=== PATIENT | female | born 2000 | race Caucasian/White ===

== ENCOUNTER 2022-01-20 15:06 | Emergency (ER) | payer MEDICARE, OTHER, MEDICAID, SELFPAY ==
[2022-01-20] VITALS (11 sets, daily range): BP systolic 115–156; BP diastolic 71–115; PULSE 61–82; RESP 14–23; TEMP 36.4; O2SAT 98–100; BMI 36.2
[2022-01-20 18:28] LABS: Add Manual Diff / Slide Review NO; Basophils Absolute Auto 100 /uL (0-100); Basophils Percent Auto 0.6 % (0-2); Eosinophils Absolute Auto 200 /uL (0-450); Eosinophils Percent Auto 1.5 % (2-4); Hematocrit 42.8 % (36-46); Hemoglobin 14.4 g/dL (12.0-16.0); Lymphocytes Absolute Auto 3200 /uL (1100-4500); Lymphocytes Percent Auto 27.6 % (25-40); Mean Corpuscular HGB Conc 33.6 % (30-36); Mean Corpuscular Hemoglobin 29.1 PG (26-34); Mean Corpuscular Volume 86.7 fL (80-100); Monocytes Absolute Auto 600 /uL (0-900); Monocytes Percent Auto 4.9 % (3-14); Neutrophils Absolute Auto 7600 /uL (1500-7000); Neutrophils Percent Auto 65.4 % (50-75); Platelet Count 353 X10^3/uL (150-400); Red Blood Cell Count 4.94 X10^6/uL (4.0-5.2); Red Cell Distribution Width 12.7 % (11.6-14.8); White Blood Cell Count 11.7 X10^3/uL (4.5-11.0)
--- NOTE | 2022-01-20 18:29 | DI.US.S_ITS ---
PROCEDURE: US PELVIC COMPLETE INDICATIONS: PELVIC PAIN TECHNIQUE: Real-time scanning was performed of the pelvic organs, with image documentation. Additional endovaginal scanning was necessary due to incomplete visualization of the adnexal and endometrial structures by transabdominal scanning. COMPARISON: None. FINDINGS: Uterus: Uterus is anteverted and normal in size at 7.3 x 3.6 x 4.4 cm. The myometrium is homogeneous. The endometrium measures 11.2 mm combined thickness. Ovaries: Right left ovaries measure 2.5 x 0.9 x 1.1 cm 3.2 x 2.9 x 3.2 cm respectively. Left ovary contains a simple cyst measuring 2.7 cm. Both ovaries have appropriate vascularity without torsion. Other: No pathologic free abdominal or pelvic fluid. IMPRESSION: Simple left ovarian cyst. Otherwise unremarkable ultrasound the pelvis Approved by: Marlon Mora M.D. on 01/20/2022 at 20:05
[2022-01-20 18:30] LABS: Alanine Aminotransferase 35 IU/L (<35); Albumin 4.4 g/dL (3.5-5.0); Albumin Globulin Ratio 1.4 (1.0-2.8); Alkaline Phosphatase 65 U/L (38-126); Aspartate Aminotransferase 29 IU/L (14-36); BUN Creatinine Ratio 11.9 (6-22); Bilirubin Total 0.4 mg/dL (0.2-1.3); Blood Urea Nitrogen 7 mg/dL (7-17); Calcium 9.3 mg/dL (8.4-10.2); Carbon Dioxide 26 mmol/L (22-32); Chloride 108 mmol/L (98-107); Estimated Glomerular Filt Rate > 60 mL/min (>60); Globulin 3.1 g/dL (1.7-4.1); Glucose 83 mg/dL (70-100); HEMOLYSIS < 15 (0-50); Lipase 42 U/L (23-300); Potassium 4.1 mmol/L (3.4-5.1); Sodium 141 mmol/L (137-145); Total Protein 7.5 g/dL (6.3-8.2)
--- NOTE | 2022-01-20 18:41 | ED.ABDPAIN ---
HPI - Abdominal Pain <Madan Rivera PA-C - Last Filed: 01/25/22 19:53> General Chief Complaint: Abdominal Pain Stated Complaint: Lower Abd Pain Time Seen by Provider: 01/20/22 17:49 Source: patient Mode of arrival: Ambulatory History of Present Illness HPI narrative: Patient is a 21-year-old female presenting to the emergency department today for an evaluation bilateral lower abdominal pain. Patient explains that she began to experience a sharp pain in her lower abdomen yesterday, stating that no one side appears worse than the other. She also states that she has been experiencing ?abdominal burning? for a number of years. She explains that she was initially on ranitidine for this abdominal burning sensation but discontinued use after the medication was recalled. She explains that she has been taking Pepto-Bismol for this burning sensation with mild improvement in her symptoms. Patient states that her lower abdominal pain is alleviated somewhat with application of a heating pad, however she states that the pain returns as soon as the heating pad is removed. She denies fever, chills, chest pain, cough, shortness of breath, nausea, vomiting, diarrhea, constipation, dysuria, hematuria, or any other concerning symptoms. No further concerns were voiced at this time. Related Data Home Medications Medication Instructions Recorded Confirmed medroxyprogesterone 400 mg/mL mg IM QMONTH 01/20/22 intramuscular suspension Previous Rx's Medication Instructions Recorded ketorolac 10 mg tablet 10 mg PO Q6H PRN #14 tab 01/20/22 Allergies Allergy/AdvReac Type Severity Reaction Status Date / Time No Known Drug Allergies Allergy Verified 01/20/22 15:34 Review of Systems <Madan Rivera PA-C - Last Filed: 01/25/22 19:53> Constitutional Constitutional: Denies chills, Denies fatigue, Denies fever(s), Denies frequent falls, Denies lethargy and Denies weakness Eyes Eyes: Denies loss of vision ENT Ears, Nose, Mouth, and Throat: Denies dizziness and Denies neck pain Cardiovascular Cardiovascular: Denies chest pain, Denies irregular heart rhythm, Denies lightheadedness, Denies palpitations, Denies dyspnea, Denies dyspnea on exertion and Denies orthopnea Respiratory Respiratory: Denies cough, Denies dyspnea, Denies dyspnea on exertion and Denies wheezing Gastrointestinal Gastrointestinal: Reports abdominal pain, Denies change in bowel habits, Denies diarrhea, Denies nausea and Denies vomiting Genitourinary Genitourinary: Denies hematuria, Denies flank pain, Denies urinary incontinence and Denies urinary urgency Musculoskeletal Musculoskeletal: Denies back pain, Denies muscle weakness, Denies neck pain, Denies numbness and Denies tingling Integumentary/Breasts Skin/Breast: Denies pruritus, Denies erythema, Denies rash and Denies wounds Neurologic Neurologic: Denies behavioral changes, Denies confusion, Denies dizziness, Denies frequent falls, Denies loss of vision, Denies numbness, Denies tingling and Denies weakness Psychiatric Psychiatric: Denies behavioral changes and Denies confusion Endocrine Endocrine: Denies fatigue and Denies palpitations Allergic/Immunologic Allergic/Immunologic: Denies wheezing Patient History <Madan Rivera PA-C - Last Filed: 01/25/22 19:53> Social History Smoking Status: Never smoker Smoking Status: Never smoker alcohol intake frequency: other Substance Use Type: does not use Exam <Madan Rivera PA-C - Last Filed: 01/25/22 19:53> Narrative Exam Narrative: GENERAL: 21 year old patient appears stated age. Well-developed patient, in no acute distress. HEAD: Atraumatic. Normocephalic. EYES: Pupils equal round and reactive. Extraocular motions intact. No scleral icterus. No injection or drainage. ENT: Nose without bleeding, purulent drainage. Throat without erythema, tonsillar hypertrophy or exudate. Airway patent. NECK: Trachea midline. Non tender CARDIOVASCULAR: Regular rate and rhythm without murmurs, gallops, or rubs. RESPIRATORY: Clear to auscultation. Breath sounds equal bilaterally. No wheezes, rales, or rhonchi. GASTROINTESTINAL: Abdomen soft, nondistended. Mild tenderness to palpation appreciated in the right lower quadrant and left lower quadrant of the abdomen with no significant guarding or rebound tenderness. No masses appreciated. No significant overlying erythema or ecchymosis. Negative psoas sign, negative obturator's sign. EXTREMITIES: No edema or joint tenderness. BACK: Nontender without deformity or crepitance. No flank tenderness. NEURO: AOx3. SKIN: No rash or erythema of visible areas Initial Vital Signs Initial Vital Signs: Vital Signs Temperature 97.5 F L 01/20/22 15:30 Pulse Rate 82 01/20/22 15:30 Respiratory Rate 17 01/20/22 15:30 Blood Pressure 144/115 H 01/20/22 15:30 Pulse Oximetry 100 01/20/22 15:30 Course <Madan Rivera PA-C - Last Filed: 01/25/22 19:53> Course Course Narrative: CBC, CMP, lipase, urine dip, urine , pelvic ultrasound obtained. Orders Ordered: ED Orders 01/20/22 17:00 Complete Blood Count AUTO DIFF Stat Comprehensive Metabolic Panel Stat Lipase Stat 01/20/22 18:29 US pelvic complete Stat Vital Signs Vital signs: Vital Signs - 8 hr 01/20/22 15:30 Temperature 97.5 F L Pulse Rate 82 Respiratory Rate 17 Blood Pressure 144/115 H Pulse Oximetry 100 MDM - Abdominal Pain <Madan Rivera PA-C - Last Filed: 01/25/22 19:53> Lab Data Result diagrams: 01/20/22 17:00 01/20/22 17:00 Labs: Lab Results 01/20/22 01/20/22 Range/Units 17:00 17:00 WBC 11.7 H (4.5-11.0) X10^3/uL RBC 4.94 (4.0-5.2) X10^6/uL Hgb 14.4 (12.0-16.0) g/dL Hct 42.8 (36-46) % MCV 86.7 (80-100) fL MCH 29.1 (26-34) PG MCHC 33.6 (30-36) % RDW 12.7 (11.6-14.8) % Plt Count 353 (150-400) X10^3/uL Neut % (Auto) 65.4 (50-75) % Lymph % (Auto) 27.6 (25-40) % [place] % (Auto) 4.9 (3-14) % Eos % (Auto) 1.5 L (2-4) % Baso % (Auto) 0.6 (0-2) % Neut # (Auto) 7600 H (4304-4086) /uL Lymph # (Auto) 3200 (1244-5611) /uL [place] # (Auto) 600 (0-900) /uL Eos # (Auto) 200 (0-450) /uL Baso # (Auto) 100 (0-100) /uL Sodium 141 (137-145) mmol/L Potassium 4.1 (3.4-5.1) mmol/L Chloride 108 H (98-107) mmol/L Carbon Dioxide 26 (22-32) mmol/L BUN 7 (7-17) mg/dL Creatinine 0.59 (0.52-1.04) mg/dL Estimated GFR > 60 (>60) mL/min BUN/Creatinine Ratio 11.9 (6-22) Glucose 83 (70-100) mg/dL Calcium 9.3 (8.4-10.2) mg/dL Total Bilirubin 0.4 (0.2-1.3) mg/dL AST 29 (14-36) IU/L ALT 35 H (<35) IU/L Alkaline Phosphatase 65 (38-126) U/L Total Protein 7.5 (6.3-8.2) g/dL Albumin 4.4 (3.5-5.0) g/dL Globulin 3.1 (1.7-4.1) g/dL Albumin/Globulin Ratio 1.4 (1.0-2.8) Lipase 42 (23-300) U/L Point of care testing: Point of Care Testing Test Results Negative Urine Dip Bedside Urine Glucose Negative Bedside Urine Bilirubin - Negative Bedside Urine Ketone - Negative Urine Specific [place] 1.015 Bedside Urine Occult Blood - Negative Bedside Urine pH 6.5 Bedside Urine Protein - Negative Bedside Urine Urobilinogen - Negative Bedside Urine Nitrite - Negative Bedside Urine Leukocytes - Negative Esterase Discharge Plan Departure Patient Disposition: Home Clinical Impression: Cyst of left ovary Instructions: DI for Ovarian Cyst Activity Restrictions/Additional Instructions: *You have been diagnosed with [left ovarian cyst] *What to do: *Please continue to take your regular medications as directed. [x ] New medication prescriptions sent to your pharmacy: [ [facility] in [place]] [ ] New medication written as a paper prescription [ ] No new medications given *Please follow up with your primary care provider in 2-3 days, call for an appointment. Let them know you were seen in the Emergency Department and that we ask that you be seen in follow up. We will electronically transmit a record of today's note if your PCP is in our system *If you do not have a primary care provider please contact the [facility] Resource line at [phone]. They will ask some questions about your medical history and help get you set up with a doctor in the community. *Return to Emergency Department if you should have any new, worsening or concerning symptoms, such as [fever greater than 101 F, shaking chills, worsening pain, persistent vomiting or other bothersome symptoms] Prescriptions: New ketorolac 10 mg tablet 10 mg PO Q6H PRN (Reason: pain) Qty: 14 0RF No Action Depo-Provera 400 mg/mL Suspension IM QMONTH 0RF Referrals: Saira Benedict ARNP [Primary Care Provider] - Stand Alone Forms: Work Release Note
== END 2022-01-20 21:34 | disposition home or self-care (01) ==
PROVIDERS: Emergency Medicine; Emergency Provider Emergency Medicine; Family Provider Pediatrics; PCP Nurse Practitioner
DX: N83.202 Unspecified ovarian cyst, left side (principal); R10.31 Right lower quadrant pain
CPT/HCPCS: 76830; 76856; 80053; 81003; 81025; 83690; 85025; 99282; 99283

== ENCOUNTER 2022-07-13 11:26 | Emergency (ER) | payer MEDICARE, OTHER, MEDICAID, SELFPAY ==
[2022-07-13 11:43] VITALS: BP 148/96; PULSE 70; RESP 20; TEMP 36.1; O2SAT 99; BMI 35.9
== END 2022-07-13 14:49 | disposition left against medical advice (07) ==
PROVIDERS: Emergency Provider Physician Assistant; Family Provider Pediatrics; PCP Nurse Practitioner
CPT/HCPCS: 99281

== ENCOUNTER 2023-10-31 08:13 | Emergency (ER) | payer OTHER, SELFPAY ==
[2023-10-31] VITALS (7 sets, daily range): BP systolic 115–133; BP diastolic 76–94; PULSE 65–80; RESP 18; TEMP 36.9; O2SAT 94–100; BMI 32.5
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
[2023-10-31] MEDS: IBUPROFEN 400 MG TABLET 800 MG PO (08:55)
== END 2023-10-31 09:38 | disposition home or self-care (01) ==
PROVIDERS: Emergency Provider Emergency Medicine; Family Provider Pediatrics; PCP Nurse Practitioner
DX: S16.1XXA Strain of muscle, fascia and tendon at neck level, initial encounter (principal); V89.2XXA Person injured in unspecified motor-vehicle accident, traffic, initial encounter
CPT/HCPCS: 71046; 99283

== ENCOUNTER 2024-12-02 15:08 | Emergency (ER) | payer SELFPAY ==
[2024-12-02 15:32] VITALS: BP 146/93; PULSE 94; RESP 20; TEMP 36.6; O2SAT 100; BMI 34.0
[2024-12-02 16:22] LABS: Influenza A - CEPHEID Flu A NEGATIVE (NEGATIVE); Influenza B - CEPHEID Flu B NEGATIVE (NEGATIVE); Respiratory Syncytial Virus Negative (Negative)
[2024-12-02 16:23] LABS: COVID-19 CEPHEID 4-PLEX PCR Negative (Negative)
--- NOTE | 2024-12-02 18:27 | ED_ITS ---
HPI - URI/Sore Throat <Maria Eugenia Colon PA-C - Last Filed: 12/02/24 20:03> General Chief Complaint: Upper Respiratory Symptoms Stated Complaint: lower left quad px, ear px x 4days Time Seen by Provider: 12/02/24 18:27 Source: patient Mode of arrival: Ambulatory History of Present Illness HPI Narrative: Ms. Encarnacion is a pleasant 24-year-old female with no reported past medical history who presents to the emergency department for URI type symptoms x5 days. Patient reports that she has had occasional dry cough, pain on left lower chest wall with coughing/deep breath, right ear pain and congestion occasional headache for the last few days. Denies fever, sore throat, ear drainage, chest pain, nausea, vomiting, dysuria. Some occasional loose stool. Reports that she will need a note for work because she is missed last 3 days due to her symptoms. Related Data Home Medications Medication Instructions Recorded Confirmed medroxyprogesterone 400 mg/mL mg IM QMONTH 01/20/22 intramuscular suspension Previous Rx's Medication Instructions Recorded ketorolac 10 mg tablet 10 mg PO Q6H PRN pain #14 tabs 01/20/22 Allergies Allergy/AdvReac Type Severity Reaction Status Date / Time No Known Drug Allergies Allergy Verified 01/20/22 15:34 Review of Systems <Maria Eugenia Colon PA-C - Last Filed: 12/02/24 20:03> Review of Systems ROS Unobtainable: All systems reviewed & are unremarkable except as noted in HPI and below Patient History <Maria Eugenia Colon PA-C - Last Filed: 12/02/24 20:03> Social History Smoking Status: Never smoker Smoking Status: Never smoker alcohol intake frequency: other Exam <Maria Eugenia Colon PA-C - Last Filed: 12/02/24 20:03> Narrative Exam Narrative: GENERAL: 24 year old patient appears stated age. Well-developed patient, in no acute distress. HEAD: Atraumatic. Normocephalic. EYES: No scleral icterus. No injection or drainage. ENT: Normal TM BL. Nose without bleeding, purulent drainage. Throat With posterior oropharyngeal erythema and Palatal petechiae. Uvula is midline, no tonsillar hypertrophy or exudates. Airway patent. NECK: Trachea midline. Cervical ROM intact. CARDIOVASCULAR: Regular rate and rhythm. RESPIRATORY: Nonlabored respirations. Speaking in clear, full sentences. Clear to auscultation. No wheezing. GASTROINTESTINAL: Abdomen soft, non-tender, nondistended. EXTREMITIES: No edema or joint tenderness. NEURO: AOx3. Clear speech. Moves all 4 extremities appropriately. SKIN: No rash or erythema of visible areas Initial Vital Signs Initial Vital Signs: Vital Signs Temperature 98 F 12/02/24 15:32 Pulse Rate 94 H 12/02/24 15:32 Respiratory Rate 20 12/02/24 15:32 Blood Pressure 146/93 H 12/02/24 15:32 Pulse Oximetry 100 12/02/24 15:32 Oxygen Delivery Method Room Air 12/02/24 15:32 <Nikia Del Rio MD - Last Filed: 12/03/24 03:58> Initial Vital Signs Initial Vital Signs: Vital Signs Temperature 98 F 12/02/24 15:32 Pulse Rate 94 H 12/02/24 15:32 Respiratory Rate 20 12/02/24 15:32 Blood Pressure 146/93 H 12/02/24 15:32 Pulse Oximetry 100 12/02/24 15:32 Oxygen Delivery Method Room Air 12/02/24 15:32 Course <Maria Eugenia Colon PA-C - Last Filed: 12/02/24 20:03> Orders Ordered: Discontinued Medications Acetaminophen (Acetaminophen 325 Mg Tablet) 650 mg PO NOW ONE Stop: 12/02/24 18:35 Last Admin: 12/02/24 18:55 Dose: 650 mg Documented By: HUNG Ibuprofen (Ibuprofen 400 Mg Tablet) 400 mg PO NOW ONE Stop: 12/02/24 18:35 Last Admin: 12/02/24 18:55 Dose: 400 mg Documented By: HUNG Vital Signs Vital signs: Vital Signs - 8 hr 12/02/24 15:32 12/02/24 19:53 Temperature 98 F Pulse Rate 94 H 86 Respiratory Rate 20 Blood Pressure 146/93 H 121/86 Pulse Oximetry 100 99 Oxygen Delivery Method Room Air <Nikia Del Rio MD - Last Filed: 12/03/24 03:58> Orders Ordered: Discontinued Medications Acetaminophen (Acetaminophen 325 Mg Tablet) 650 mg PO NOW ONE Stop: 12/02/24 18:35 Last Admin: 12/02/24 18:55 Dose: 650 mg Documented By: HUNG Ibuprofen (Ibuprofen 400 Mg Tablet) 400 mg PO NOW ONE Stop: 12/02/24 18:35 Last Admin: 12/02/24 18:55 Dose: 400 mg Documented By: HUNG Vital Signs Vital signs: Vital Signs - 8 hr 12/02/24 15:32 12/02/24 19:53 Temperature 98 F Pulse Rate 94 H 86 Respiratory Rate 20 Blood Pressure 146/93 H 121/86 Pulse Oximetry 100 99 Oxygen Delivery Method Room Air MDM - URI/Sore Throat <Maria Eugenia Colon PA-C - Last Filed: 12/02/24 20:03> Medical Records Attestation: I reviewed the patient's medical records. Lab Data Labs: Lab Results 12/02/24 12/02/24 Range/Units 15:40 18:32 SARS-CoV-2 (PCR) Negative (Negative) Influenza A (RT-PCR) Flu a negative (NEGATIVE) Influenza B (RT-PCR) Flu b negative (NEGATIVE) RSV (PCR) Negative (Negative) Group A Strep (PCR) Negative (Negative) Imaging Data Chest x-ray: Radiologist's Impression: PROCEDURE: XR CHEST 2V INDICATIONS: left lower chest pain with deep breathing / cough TECHNIQUE: 2 views of the chest were acquired. COMPARISON: [facility], , XR CHEST 2V, 10/31/2023, 9:00. FINDINGS: Surgical changes and devices: None. Lungs and pleura: Lungs are clear. No pleural effusions or pneumothorax. Mediastinum: Mediastinal contours are normal. Heart size is normal. Bones and chest wall: No suspicious bony abnormalities. Soft tissues appear unremarkable. IMPRESSION: No acute cardiopulmonary abnormality is seen. [facility] Narrative Medical decision making narrative: 24-year-old female with no reported past medical history who presents to the emergency department for URI type symptoms x5 days. She is having right ear pain, cough, left lower ribcage pain with cough. Differential diagnosis includes but is not limited to viral syndrome, bronchitis, pneumonia, acute otitis media, strep pharyngitis, viral pharyngitis, costochondritis, etc. On exam the patient is in no acute distress, nontoxic appearing, vital signs reveal pulse of 94, 100% O2 on room air, afebrile, no respiratory distress, blood pressure 146/93. Normal TMs bilaterally, there is posterior oropharyngeal erythema with palatal petechiae, she denies any oral sex/trauma, no severe sore throat. Viral swab was obtained in triage and is negative. We will add on strep swab, two-view chest x-ray, ibuprofen and Tylenol. Strep swab negative. Chest x-ray negative. Patient's symptoms are consistent with viral URI at this time, physical exam does not reveal an ear infection. Recommended supportive care with rest, hydration, ibuprofen/ acetaminophen. Patient was provided with work note. ED return precautions discussed. She is stable for discharge home. <Nikia Del Rio MD - Last Filed: 12/03/24 03:58> Lab Data Labs: Lab Results 12/02/24 12/02/24 Range/Units 15:40 18:32 SARS-CoV-2 (PCR) Negative (Negative) Influenza A (RT-PCR) Flu a negative (NEGATIVE) Influenza B (RT-PCR) Flu b negative (NEGATIVE) RSV (PCR) Negative (Negative) Group A Strep (PCR) Negative (Negative) Discharge Plan Departure Patient Disposition: Home Clinical Impression: Upper respiratory infection, viral Instructions: DI for Viral Upper Respiratory Infection -- Adult Activity Restrictions/Additional Instructions: Dear Mike Shashank, Thank you for coming to the emergency department. Today you tested negative for COVID, flu a, flu B, RSV, strep throat. Your chest x-ray revealed no signs of pneumonia, and your ear exam does not reveal an ear infection. Please rest, hydrate, use ibuprofen / acetaminophen as needed for pain or fevers, and follow up with the primary care doctor. Please return to the emergency department if you develop any chest pain, shortness of breath, or any other concerns. Please follow up with your primary care doctor within the next 2-3 days for ER follow-up. (If you do not have a PCP you can call [phone]. to schedule an appointment with an Primary Care Provider) IF YOU DEVELOP ANY NEW OR WORSENING SYMPTOMS, RETURN TO THE ER! Please read the attached instructions, they highlight more specific treatments and interventions for you at home. Thank you for letting me participate in your care, Maria Eugenia Colon PA-C Prescriptions: No Action Depo-Provera 400 mg/mL Suspension IM QMONTH ketorolac 10 mg tablet 10 mg PO Q6H PRN (Reason: pain) Qty: 14 0RF Referrals: Saira Benedict [employer] [facility] [Primary Care Provider] - Stand Alone Forms: Patient Portal/API/Survey, Work Release Note ED Sign-out <Nikia Del Rio MD - Last Filed: 12/03/24 03:58> Cosign ED Attending Cosignature Attestation: I was immediately available in the department for consultation throughout this patient's visit. Nikia Del Rio MD
--- NOTE | 2024-12-02 18:34 | DI.RAD.S_ITS ---
PROCEDURE: XR CHEST 2V INDICATIONS: left lower chest pain with deep breathing / cough TECHNIQUE: 2 views of the chest were acquired. COMPARISON: [facility], [place], XR CHEST 2V, 10/31/2023, 9:00. FINDINGS: Surgical changes and devices: None. Lungs and pleura: Lungs are clear. No pleural effusions or pneumothorax. Mediastinum: Mediastinal contours are normal. Heart size is normal. Bones and chest wall: No suspicious bony abnormalities. Soft tissues appear unremarkable. IMPRESSION: No acute cardiopulmonary abnormality is seen. Dictated by: Jose A Randall M.D. on 12/02/2024 at 19:58 Approved by: Jose A Randall M.D. on 12/02/2024 at 19:58
--- NOTE | 2024-12-02 18:44 | PC.NURSE ---
Addendum entered by Jennifer Carey R.N. 12/02/24 18:45: mild ear pain on right side. no obvious drainage or redness noted. petechiae noted in erik of mouth Original Note: left sided chest wall pain. Pt states there have been members of her family that have been sick
[2024-12-02] MEDS: IBUPROFEN 400 MG TABLET PO (18:55)
[2024-12-02] MEDS: ACETAMINOPHEN 325 MG TABLET 650 MG PO (18:55)
[2024-12-02 18:57] LABS: Strep Grp A by PCR Rapid Negative (Negative)
[2024-12-02 19:53] VITALS: BP 121/86; PULSE 86; O2SAT 99
== END 2024-12-02 20:02 | disposition home or self-care (01) ==
PROVIDERS: Emergency Provider Physician Assistant; Family Provider Pediatrics; PCP Nurse Practitioner
DX: J06.9 Acute upper respiratory infection, unspecified (principal); R07.9 Chest pain, unspecified
CPT/HCPCS: 0241U; 71046; 87070; 87651; 99283